=== PATIENT | female | born 1985 | race Two or more races ===

== ENCOUNTER 2020-07-27 11:32 | Emergency (ER) | payer SELFPAY ==
[2020-07-27 11:58] VITALS: BP 114/76; PULSE 86
[2020-07-27] MEDS ORDERED: Sodium Chloride 0.9% 10 ML Syringe FLUSH PRN (12:18)
[2020-07-27] MEDS ORDERED: Ketorolac 30 MG/ML SDV IVPUSH ONE (12:21)
[2020-07-27] MEDS ORDERED: Ondansetron 4 MG/2 ML SDV IVPUSH ONE (12:21)
[2020-07-27] MEDS ORDERED: Sodium Chloride 0.9% 1,000 ML IV SCH ×2 (12:30→13:45)
--- NOTE | 2020-07-27 12:32 | EDM.PDOC ---
ED HPI GENERAL MEDICAL PROBLEM - General Chief Complaint: Headache Stated Complaint: FEVER,HEADACHE,AND HIGH BLOOD SUGAR Time Seen by Provider: 07/27/20 11:46 Source of Information: Reports: Patient History Limitations: Reports: Language Barrier - History of Present Illness INITIAL COMMENTS - FREE TEXT/NARRATIVE: Patient is a 35-year-old female presenting to the emergency department with complaints of headache, nausea, vomiting, low back pain, diaphoresis, and elevated blood glucose. She states symptoms began 2 days ago. She has been using [id number] Tylenol and ibuprofen for her headache with little relief. Patient states she has a history of gestational diabetes, however has had normal blood sugar since she gave in August 2017. She states that she checked her blood sugar when she was not feeling well out of concern that she may have return of her diabetes. States her blood sugar at home was over 300. She denies any vision changes, cough, shortness of breath, chest pain. She has had no recent falls or head injuries. Pt is maltese speaking so the ipad supervisor power reactor was used for communication. Headache Pain Score (Numeric/FACES): 8 - Related Data Allergies Allergy/AdvReac Type Severity Reaction Status Date / Time No Known Allergies Allergy Verified 07/27/20 11:58 Home Meds: Home Meds Ondansetron [Zofran ODT] 4 mg PO Q6H PRN #10 tab.dis 07/27/20 [Rx] metFORMIN [Glucophage] 500 mg PO BIDMEALS #60 tab 07/27/20 [Rx] Past Medical History - Past Health History Medical/Surgical History: Denies Medical/Surgical History Social & Family History - Tobacco Use Smoking Status *Q: Never Smoker Second Hand Smoke Exposure: No - Caffeine Use Caffeine Use: Reports: None - Recreational Drug Use Recreational Drug Use: No ED ROS GENERAL - Review of Systems Review Of Systems: See Below Constitutional: Denies: Fever, Chills, Weakness HEENT: Reports: No Symptoms. Denies: Vision Change Respiratory: Reports: No Symptoms. Denies: Shortness of Breath, Cough Cardiovascular: Reports: No Symptoms. Denies: Chest Pain, Dyspnea on Exertion, Lightheadedness Endocrine: Reports: High Glucose. Denies: Polydypsia, Polyuria GI/Abdominal: Reports: Nausea, Vomiting. Denies: Abdominal Pain, Diarrhea : Reports: No Symptoms Musculoskeletal: Reports: Back Pain (low) Skin: Reports: No Symptoms Neurological: Reports: Headache. Denies: Dizziness Psychiatric: Reports: No Symptoms Hematologic/Lymphatic: Reports: No Symptoms Immunologic: Reports: No Symptoms - Physical Exam Exam: See Below Exam Limited By: No Limitations General Appearance: Alert, WD/WN, No Apparent Distress Eye Exam: Bilateral Eye: PERRL Head Exam: Atraumatic, Normocephalic Neck: Normal Inspection, Supple, Non-Tender, Full Range of Motion Respiratory/Chest: No Respiratory Distress, Lungs Clear, Normal Breath Sounds, No Accessory Muscle Use, Chest Non-Tender Cardiovascular: Normal Peripheral Pulses, Regular Rate, Rhythm, No Edema, No Gallop, No JVD, No Murmur, No Rub GI/Abdominal: Normal Bowel Sounds, Soft, Non-Tender, No Organomegaly, No Distention, No Abnormal Bruit, No Mass Neuro Exam (Abbreviated): Alert, Oriented, CN II-XII Intact, Normal Cognition, Normal Gait, Normal Reflexes, No Motor/Sensory Deficits Back Exam: Normal Inspection, Full Range of Motion, Other (mild low back pain/tenderness). No: CVA Tenderness (L), CVA Tenderness (R) Psychiatric: Normal Affect, Normal Mood Skin Exam: Warm, Dry, Intact, Normal Color, No Rash Course - Vital Signs Last Recorded V/S: Last Vital Signs Temp 97.2 F 07/27/20 11:55 Pulse 86 07/27/20 11:55 Resp 16 07/27/20 11:55 BP 114/76 07/27/20 11:55 Pulse Ox 99 07/27/20 11:55 - Orders/Labs/Meds Orders: Active Orders 24 hr Category Date Time Status Chest 1V Frontal [CR] Stat Exams 07/27/20 14:29 Taken Head wo Cont [CT] Stat Exams 07/27/20 12:31 Taken CORONAVIRUS COVID-19 PCR PHL Routine Lab 07/27/20 15:12 Received Isolation [COMM] Routine Oth 07/27/20 14:44 Ordered Peripheral IV Insertion Adult [OM.PC] Stat Oth 07/27/20 12:18 Ordered Labs: Laboratory Tests 07/27/20 07/27/20 07/27/20 Range/Units 12:40 12:40 12:40 WBC 7.90 (3.98-10.04) K/mm3 RBC 4.74 (3.98-5.22) M/mm3 Hgb 13.7 (11.2-15.7) gm/dl Hct 40.5 (34.1-44.9) % MCV 85.4 (79.4-94.8) fl MCH 28.9 (25.6-32.2) pg MCHC 33.8 (32.2-35.5) g/dl RDW Std Deviation 40.1 (36.4-46.3) fL Plt Count 180 L (182-369) K/mm3 MPV 9.6 (9.4-12.3) fl Neut % (Auto) 85.1 H (34.0-71.1) % Lymph % (Auto) 9.1 L (19.3-51.7) % Morrow % (Auto) 5.2 (4.7-12.5) % Eos % (Auto) 0.1 L (0.7-5.8) Baso % (Auto) 0.1 (0.1-1.2) % Neut # (Auto) 6.72 H (1.56-6.13) K/mm3 Lymph # (Auto) 0.72 L (1.18-3.74) K/mm3 Morrow # (Auto) 0.41 H (0.24-0.36) K/mm3 Eos # (Auto) 0.01 L (0.04-0.36) K/mm3 Baso # (Auto) 0.01 (0.01-0.08) K/mm3 Manual Slide Review Abnormal smear D-Dimer, Quantitative (0.19-0.50) mg/L Sodium 134 L (136-145) mEq/L Potassium 3.9 (3.5-5.1) mEq/L Chloride 97 L (98-107) mEq/L Carbon Dioxide 18 L (21-32) mEq/L Anion Gap 22.9 H (5-15) BUN 12 (7-18) mg/dL Creatinine 1.0 (0.55-1.02) mg/dL Est Cr Clr Drug Dosing 71.21 mL/min Estimated GFR (MDRD) > 60 (>60) mL/min BUN/Creatinine Ratio 12.0 L (14-18) Glucose 339 H (74-106) mg/dL Hemoglobin A1c (4.50-6.20) % Calcium 8.7 (8.5-10.1) mg/dL Ferritin (8-252) ng/ml Total Bilirubin 0.7 (0.2-1.0) mg/dL AST 91 H (15-37) U/L ALT 72 H (14-59) U/L Alkaline Phosphatase 118 H (46-116) U/L Lactate Dehydrogenase (81-234) U/L C-Reactive Protein 39.0 H* (<1.0) mg/dL Total Protein 7.1 (6.4-8.2) g/dl Albumin 2.9 L (3.4-5.0) g/dl Globulin 4.2 gm/dL Albumin/Globulin Ratio 0.7 L (1-2) Urine Color (Yellow) Urine Appearance (Clear) Urine pH (5.0-8.0) Ur Specific [place] (1.005-1.030) Urine Protein (Negative) Urine Glucose (UA) (Negative) Urine Ketones (Negative) Urine Occult Blood (Negative) Urine Nitrite (Negative) Urine Bilirubin (Negative) Urine Urobilinogen (0.2-1.0) Ur Leukocyte Esterase (Negative) Urine RBC (0-5) /hpf Urine WBC (0-5) /hpf Ur Squamous Epith Cells (0-5) /hpf Urine Bacteria (FEW) /hpf Urine Mucus (FEW) /hpf Ketones 4.32 (0.0-0.3) mM 07/27/20 07/27/20 07/27/20 Range/Units 12:40 12:40 12:40 WBC (3.98-10.04) K/mm3 RBC (3.98-5.22) M/mm3 Hgb (11.2-15.7) gm/dl Hct (34.1-44.9) % MCV (79.4-94.8) fl MCH (25.6-32.2) pg MCHC (32.2-35.5) g/dl RDW Std Deviation (36.4-46.3) fL Plt Count (182-369) K/mm3 MPV (9.4-12.3) fl Neut % (Auto) (34.0-71.1) % Lymph % (Auto) (19.3-51.7) % Morrow % (Auto) (4.7-12.5) % Eos % (Auto) (0.7-5.8) Baso % (Auto) (0.1-1.2) % Neut # (Auto) (1.56-6.13) K/mm3 Lymph # (Auto) (1.18-3.74) K/mm3 [place]row # (Auto) (0.24-0.36) K/mm3 Eos # (Auto) (0.04-0.36) K/mm3 Baso # (Auto) (0.01-0.08) K/mm3 Manual Slide Review D-Dimer, Quantitative (0.19-0.50) mg/L Sodium (136-145) mEq/L Potassium (3.5-5.1) mEq/L Chloride (98-107) mEq/L Carbon Dioxide (21-32) mEq/L Anion Gap (5-15) BUN (7-18) mg/dL Creatinine (0.55-1.02) mg/dL Est Cr Clr Drug Dosing mL/min Estimated GFR (MDRD) (>60) mL/min BUN/Creatinine Ratio (14-18) Glucose (74-106) mg/dL Hemoglobin A1c 10.40 H (4.50-6.20) % Calcium (8.5-10.1) mg/dL Ferritin 200 (8-252) ng/ml Total Bilirubin (0.2-1.0) mg/dL AST (15-37) U/L ALT (14-59) U/L Alkaline Phosphatase (46-116) U/L Lactate Dehydrogenase 325 H (81-234) U/L C-Reactive Protein (<1.0) mg/dL Total Protein (6.4-8.2) g/dl Albumin (3.4-5.0) g/dl Globulin gm/dL Albumin/Globulin Ratio (1-2) Urine Color (Yellow) Urine Appearance (Clear) Urine pH (5.0-8.0) Ur Specific [place] (1.005-1.030) Urine Protein (Negative) Urine Glucose (UA) (Negative) Urine Ketones (Negative) Urine Occult Blood (Negative) Urine Nitrite (Negative) Urine Bilirubin (Negative) Urine Urobilinogen (0.2-1.0) Ur Leukocyte Esterase (Negative) Urine RBC (0-5) /hpf Urine WBC (0-5) /hpf Ur Squamous Epith Cells (0-5) /hpf Urine Bacteria (FEW) /hpf Urine Mucus (FEW) /hpf Ketones (0.0-0.3) mM 07/27/20 07/27/20 Range/Units 12:40 12:50 WBC (3.98-10.04) K/mm3 RBC (3.98-5.22) M/mm3 Hgb (11.2-15.7) gm/dl Hct (34.1-44.9) % MCV (79.4-94.8) fl MCH (25.6-32.2) pg MCHC (32.2-35.5) g/dl RDW Std Deviation (36.4-46.3) fL Plt Count (182-369) K/mm3 MPV (9.4-12.3) fl Neut % (Auto) (34.0-71.1) % Lymph % (Auto) (19.3-51.7) % [place]row % (Auto) (4.7-12.5) % Eos % (Auto) (0.7-5.8) Baso % (Auto) (0.1-1.2) % Neut # (Auto) (1.56-6.13) K/mm3 Lymph # (Auto) (1.18-3.74) K/mm3 [place]row # (Auto) (0.24-0.36) K/mm3 Eos # (Auto) (0.04-0.36) K/mm3 Baso # (Auto) (0.01-0.08) K/mm3 Manual Slide Review D-Dimer, Quantitative 3.75 H (0.19-0.50) mg/L Sodium (136-145) mEq/L Potassium (3.5-5.1) mEq/L Chloride (98-107) mEq/L Carbon Dioxide (21-32) mEq/L Anion Gap (5-15) BUN (7-18) mg/dL Creatinine (0.55-1.02) mg/dL Est Cr Clr Drug Dosing mL/min Estimated GFR (MDRD) (>60) mL/min BUN/Creatinine Ratio (14-18) Glucose (74-106) mg/dL Hemoglobin A1c (4.50-6.20) % Calcium (8.5-10.1) mg/dL Ferritin (8-252) ng/ml Total Bilirubin (0.2-1.0) mg/dL AST (15-37) U/L ALT (14-59) U/L Alkaline Phosphatase (46-116) U/L Lactate Dehydrogenase (81-234) U/L C-Reactive Protein (<1.0) mg/dL Total Protein (6.4-8.2) g/dl Albumin (3.4-5.0) g/dl Globulin gm/dL Albumin/Globulin Ratio (1-2) Urine Color Yellow (Yellow) Urine Appearance Clear (Clear) Urine pH 5.5 (5.0-8.0) Ur Specific [place] > or = 1.030 (1.005-1.030) Urine Protein 1+ H (Negative) Urine Glucose (UA) 2+ H (Negative) Urine Ketones 3+ H (Negative) Urine Occult Blood 2+ H (Negative) Urine Nitrite Negative (Negative) Urine Bilirubin 1+ H (Negative) Urine Urobilinogen 0.2 (0.2-1.0) Ur Leukocyte Esterase Negative (Negative) Urine RBC 10-20 H (0-5) /hpf Urine WBC 0-5 (0-5) /hpf Ur Squamous Epith Cells 0-5 (0-5) /hpf Urine Bacteria Moderate H (FEW) /hpf Urine Mucus Moderate H (FEW) /hpf Ketones (0.0-0.3) mM Meds: Medications Discontinued Medications Generic Name Dose Route Start Last Admin Trade Name Freq PRN Reason Stop Dose Admin Sodium Chloride 1,000 mls @ 999 mls/hr 07/27/20 12:30 07/27/20 12:54 Normal Saline IV 999 mls/hr ASDIRECTED HELLEN Administration Sodium Chloride 1,000 mls @ 999 mls/hr 07/27/20 13:45 07/27/20 14:06 Normal Saline IV 999 mls/hr ASDIRECTED HELLEN Administration Ketorolac Tromethamine 30 mg 07/27/20 12:21 07/27/20 12:54 Toradol IVPUSH 07/27/20 12:22 30 mg ONETIME ONE Administration Ondansetron HCl 4 mg 07/27/20 12:21 07/27/20 12:54 Zofran IVPUSH 07/27/20 12:22 4 mg ONETIME ONE Administration Sodium Chloride 10 ml 07/27/20 12:18 07/27/20 12:40 Saline Flush FLUSH 10 ml ASDIRECTED PRN Administration Keep Vein Open - Re-Assessments/Exams Free Text/Narrative Re-Assessment/Exam: 07/27/20 1240 Hematology was significant for sodium slightly low at 134, chloride low at 97, CO2 low at 18, anion gap elevated at 22.9, glucose elevated at 339, hemoglobin A1c elevated at 10.4, AST 91, ALT 72, alk phos 118, CRP 39.0. Urinalysis was negative for infection. Head CT was negative for any acute intracranial abnormalities. Based on the labs returned thus far, patient is obviously diabetic, however I am also very suspicious that she likely has COVID-19. I have added on a d-dimer, LDH, and ferritin to further support a diagnosis of COVID-19. We will also do a baseline chest x-ray, however she has had no complaints of cough, shortness of breath, or chest pain. Oxygen saturation has been 98 to 100% throughout her visit in the ER and she is not tachypneic. 07/27/20 15:15 D-dimer was elevated at 3.75, ferritin normal at 200, LDH elevated at 325. This further supports the likelihood that patient has COVID-19. She has had no chest pain, shortness of breath, tachycardia, or hypoxia, therefore I do not feel that a chest angiogram is indicated at this time as her d-dimer is likely elevated Covid19. Patient is feeling much better after 2 L of IV fluids, Toradol, and Zofran. States her headache is much improved and her nausea has resolved. Discussed with patient that she likely has Covid19, however official results will not be available for 24 to 72 hours. We will start her on metformin for treatment of diabetes. I will prescribe 500 mg twice daily. Emphasized that she must establish care with a primary care provider as soon as possible to further monitor her diabetes. She should return to ER for any worsening symptoms. Discharge instructions as documented. Departure - Departure Time of Disposition: 15:15 Disposition: Home, Self-Care 01 Condition: Good Clinical Impression: Diabetes Qualifiers: Diabetes mellitus type: type 2 Diabetes mellitus long term care phlebotomist insulin use: without long term care phlebotomist use Diabetes mellitus complication status: with other specified complication Qualified Code(s): E11.69 - Type 2 diabetes mellitus with other specified complication - Discharge Information *PRESCRIPTION DRUG MONITORING PROGRAM REVIEWED*: No *COPY OF PRESCRIPTION DRUG MONITORING REPORT IN PATIENT JESSEE: No Prescriptions: metFORMIN [Glucophage] 500 mg PO BIDMEALS #60 tab Ondansetron [Zofran ODT] 4 mg PO Q6H PRN #10 tab.dis PRN Reason: Nausea/Vomiting Instructions: Type 2 Diabetes Mellitus, Diagnosis, Adult Referrals: PCP,None [Primary Care Provider] - Forms: ED Department Discharge Additional Instructions: You were seen in emergency department today for severe headache, nausea, vomiting, and back pain. Your work-up included blood work, urinalysis, a CT of your head, and a chest x-ray. The results of your work-up showed that you are definitely diabetic. Your hemoglobin A1c which is a three-month indicator of your blood sugars was elevated at 10.4. Your urinalysis was negative for infection. A number of your lab values raise suspicion that you are likely suffering from Covid19. This could be causing your headache. While in the ER, you received 2 L of IV fluids, Zofran for nausea, and Toradol for pain. This did improve your symptoms. A test for COVID-19 has been comple hilda, however results would not be available for 24 to 72 hours. He will be notified when these results are available. A prescription for metformin for diabetes as well as Zofran for nausea has been sent to [facility] in [facility]. licensed occupational therapist this medication take it as prescribed. If you find that you are experiencing significant abdominal upset from taking the metformin twice daily, you may reduce it to once daily for 1 week and then increase it to twice daily. It is imperative that you increase your intake of fluids. Recommend Gatorade or Powerade with no sugar or plain water for hydration. You should significantly limit your intake of sugar and carbohydrates as this will result in higher blood sugars for you. Call to set up an appointment with a primary care provider first thing Wednesday for further monitoring of your diabetes and medication adjustments as needed. The number to schedule an appointment with a provider in our clinic number [phone]. If you should experience any worsening symptoms such as recurrence of nausea and vomiting with inability keep fluids down, significant shortness of breath, or any other symptoms of concern, please not hesitate to return to the emergency department. Hoy lo vieron en el departamento de emergencias por dolor de jillian intenso, nuseas, vmitos y dolor de espalda. Peralta evaluacin incluy anlisis de pinky, anlisis de orina, deanne tomografa computarizada de peralta jillian y deanne radiografa de trax. Los resultados de peralta evaluacin demostraron que definitivamente es diabtico. Peralta hemoglobina A1c, que es un indicador de chris meses de stone niveles de azcar en pinky, se elev a 10,4. Peralta anlisis de orina fue negativo para la infeccin. Varios de stone valores de laboratorio levantan sospechas de que probablemente est sufriendo de Covid19. [place] podra estar causando peralta dolor de jillian. Mientras estaba en la heide de emergencias, recibi 2 L de lquidos intravenosos, Zofran para las nuseas y Toradol para el dolor. [place] mejor stone sntomas. Se complet deanne prueba para COVID-19, sin embargo, los resultados no estarn disponibles hasta dentro de 24 a 72 horas. Se le notificar cuando estos resultados estn disponibles. Se penn enviado deanne receta de metformina para la diabetes y de Zofran para las nuseas a la farmacia de [place] en [facility]. [place] pablo medicamento y tmelo segn lo prescrito. Si encuentra que est experimentando un malestar abdominal significativo por marge metformina dos veces al da, puede reducirlo a deanne vez al da giovani 1 semana y luego aumentarlo a dos veces al da. Es imperativo que aumente la ingesta de lquidos. Recomiende Gatorade o Powerade sin azcar o agua wes[place] para hidratarse. Debe limitar significativamente la ingesta de azcar y carbohidratos, ya que esto resultar en niveles ms altos de azcar en la pinky para usted. Llame para programar deanne melia con un proveedor de atencin primaria a primera hora del rose por la maana para un mayor control de peralta diabetes y ajustes de medicamentos segn sea necesario. El nmero para programar deanne melia con un proveedor en nuestra clnica nmero [phone]. Si experimenta algn sntoma que empeora, eden nuseas y vmitos recurrentes con incapacidad para retener lquidos, falta de aire significativa o cualquier otro sntoma que le preocupe, no dude en volver al departamento de emergencias. Sepsis Event Note (ED) - Evaluation Sepsis Screening Result: No Definite Risk - Focused Exam Vital Signs: Vital Signs Temp Pulse Resp BP Pulse Ox 07/27/20 11:55 97.2 F 86 16 114/76 99 - My Orders Last 24 Hours: My Active Orders 07/27/20 12:18 Peripheral IV Insertion Adult [OM.PC] Stat 07/27/20 12:31 Head wo Cont [CT] Stat 07/27/20 14:29 Chest 1V Frontal [CR] Stat 07/27/20 14:44 Isolation [COMM] Routine 07/27/20 15:12 CORONAVIRUS COVID-19 PCR PHL Routine - Assessment/Plan Last 24 Hours: My Active Orders 07/27/20 12:18 Peripheral IV Insertion Adult [OM.PC] Stat 07/27/20 12:31 Head wo Cont [CT] Stat 07/27/20 14:29 Chest 1V Frontal [CR] Stat 09/05/20 14:44 Isolation [COMM] Routine 07/27/20 15:12 CORONAVIRUS COVID-19 PCR PHL Routine
[2020-07-27 13:31] LABS: HEMOGLOBIN A1C 10.4 % (4.50-6.20)
--- NOTE | 2020-07-29 11:03 | CT ---
Head CT Technique: Multiple axial sections through the brain were obtained. Intravenous contrast was not utilized. Comparison: No prior intracranial imaging is available. Findings: Ventricles along with basal cisterns and sulci over the convexities are within normal limits for the patient's age. No abnormal parenchymal densities are seen. No evidence of intracranial hemorrhage. No midline shift or mass-effect is seen. Bone window settings were reviewed which showed no acute calvarial abnormality. Visualized mastoid sinuses and paranasal sinuses show nothing acute. Impression: 1. Nothing acute is appreciated on noncontrast head CT exam. Diagnostic code #1 This report was dictated in MDT I agree with preliminary report from [facility], finalized on 07/27/20, 2:11 PM Central Daylight Time
--- NOTE | 2020-07-29 11:03 | CR ---
Chest: Portable view of the chest was obtained. Comparison: No prior chest x-ray is available. Heart size and mediastinum are within normal limits for portable technique. Lungs show no acute parenchymal change. Bony structures are grossly intact. Impression: 1. Nothing acute is appreciated on portable chest x-ray. Diagnostic code #1 This report was dictated in MDT I agree with preliminary report from [facility], finalized on 07/27/20, 4:05 PM Central Daylight Time
== END 2020-07-27 16:11 | disposition home or self-care (01) ==
LOC: JD.ED 11:32
DX: E11.69 Type 2 diabetes mellitus with other specified complication (principal); Z79.84 Long term (current) use of oral hypoglycemic drugs; Z20.828 Contact with and (suspected) exposure to other viral communicable diseases
CPT/HCPCS: 36415; 70450; 71045; 80053; 81001; 82009; 82728; 82962; 83036; 83615; 85025; 85379; 86140; 87635; 96361; 96374; 96375; 99284; J1885; J2405; J7030; U0002